=== PATIENT | male | born 1990 | race Two or more races ===

== ENCOUNTER 2025-04-10 11:35 | Inpatient (IN) | payer BC, SELFPAY ==
[2025-04-10] VITALS (10 sets, daily range): BP systolic 106–151; BP diastolic 70–88; PULSE 84–110; RESP 13–19; TEMP 36.2–36.9; O2SAT 94–100; BMI 38.5; BMI 38.4
--- NOTE | 2025-04-10 11:48 | XR_ITS ---
Examination: CT abdomen with intravenous contrast CT pelvis with intravenous contrast 2-D coronal reconstructions 2-D sagittal reconstructions Date and time of exam:April 10, 2025 1325 hours, comparison 05/05/2021 INDICATIONS: Right buttock groin area pain onset today, clinical diagnosis perianal abscess. CTDI: vol (mGy) 13.5 DLP: (mGycm) 974 Technique: Multiple axial sections of the abdomen and pelvis have been obtained. 64 slice high-resolution scanner used. 3 mm axial sections have been obtained, post intravenous injection 60 cc [id number] 2-D sagittal, coronal reconstructions obtained. Low dose protocols were performed. One or more of the following dose reduction techniques were used; automated exposure control, adjustment of the mA and/or KV according to patient size, use of iterative reconstruction technique. Findings: No focal liver or splenic lesions No gallstones No pancreatic or adrenal mass No renal or ureteral calculi, no hydronephrosis Aorta normal size Absent appendix No bowel obstruction Normal seminal vesicles No prostatomegaly Contracted urinary bladder Cellulitis pattern in the right buttock anterolisthesis extent left buttock but no soft tissue abscess Perianal abscess, 8 x 2.5 x 6.7 cm, inflammation extending to the perineum and base of the scrotal sac IMPRESSION: Large perianal abscess, recommend surgical consultation
--- NOTE | 2025-04-10 11:48 | PD.EDRME ---
Rapid Medical Screening Exam RME Arrival date/time: 04/10/25 11:35 34-year-old male presents to the emergency department today for complaints of right buttock pain perirectal pain Chief Complaint: Skin/Abscess/Foreign Body Vital signs: Vital Signs Temperature 98.4 F 04/10/25 11:42 Pulse Rate 110 H 04/10/25 11:42 Respiratory Rate 19 04/10/25 11:42 Blood Pressure 151/88 H 04/10/25 11:42 Pulse Oximetry (%) 97 04/10/25 11:42 Oxygen Delivery Method Room Air 04/10/25 11:42
[2025-04-10] MEDS: HYDROcodone/APAP 5/325 TABLET 1 TAB PO (11:55)
[2025-04-10 12:14] LABS: Lactate (Lactic Acid) 1.4 mMol/L (0.4-2.0)
[2025-04-10 12:18] LABS: Basophils # (Auto) 0.1 Thou/mm3 (0.0-0.2); Basophils % (Auto) 1 % (0-2.5); Eosinophils # (Auto) 0.5 Thou/mm3 (0.0-0.5); Eosinophils % (Auto) 4 % (0-10); Hematocrit 40.9 % (41.0-53.0); Hemoglobin 13.7 g/dL (13.5-16.0); Immature Granulocytes Auto 0.03 Thou/mm3 (0.00-0.00); Lymphocytes # (Auto) 1.2 Thou/mm3 (1.0-4.8); Lymphocytes % (Auto) 9 % (10-50); Mean Corpuscular HGB Conc 33.5 g/dl (31.0-37.0); Mean Corpuscular Hemoglobin 29.6 pg (25.0-35.0); Mean Corpuscular Volume 88 fL (80-100); Monocytes # (Auto) 0.9 Thou/mm3 (0.0-0.8); Monocytes % (Auto) 7 % (0-12); Neutrophils # (Auto) 10.3 Thou/mm3 (1.8-7.7); Neutrophils % (Auto) 80 % (37-80); Nucleated Red Blood Cell # 0.00 Thou/mm3 (0.00-0.00); Nucleated Red Blood Cell % 0 /100 WBC (0); Platelet Count 291 Thou/mm3 (140-440); RDW Standard Deviation 40.7 fL (35.1-43.9); Red Blood Count 4.63 Miln/mm3 (4.50-5.90); White Blood Count 13.0 Thou/mm3 (3.8-10.6)
[2025-04-10 12:46] LABS: Alanine Aminotransferase 26 U/L (10-49); Albumin, Serum 4.5 gm/dL (3.5-5.0); Albumin/Globulin Ratio 1.7 (1.2-2.2); Alkaline Phosphatase 79 U/L (46-116); Anion Gap 10 (7-16); Aspartate Amino Transferase 15 U/L (0-34); BUN/Creatinine Ratio 9 Ratio (12-20); Bilirubin,Total 0.9 mg/dL (0.3-1.2); Blood Urea Nitrogen 9 mg/dL (9-23); Calcium 10.4 mg/dL (8.3-10.6); Calcium (Corrected) 10.4 mg/dL (8.5-10.1); Carbon Dioxide 24.7 mMol/L (20.0-31.0); Chloride 107 mMol/L (98-107); Creatinine (Component) 1.0 mg/dL (0.6-1.3); Estimated Creatinine Clearance 140.2 mL/min (>60); Globulin 2.7 gm/dL (2.3-3.5); Glucose 139 mg/dL (74-106); Lipase 31 U/L (12-53); Osmolality,Calculated 283 (275-295); Potassium 4.2 mMol/L (3.4-5.1); Procalcitonin 0.14 ng/ml (0.0-0.49); Sodium 142 mMol/L (136-145); Total Protein 7.2 gm/dL (5.7-8.2); eGFR > 60 See Note
--- NOTE | 2025-04-10 14:02 | PD.EDSKIN ---
ED Skin Abcess FB-RME/HPI General Chief complaint: Skin/Abscess/Foreign Body Stated complaint: SWELLING TO BUTTOCK/GROIN AREA x 1 WEEK Time Seen by Provider: 04/10/25 14:02 Arrival date/time: 04/10/25 11:35 34-year-old male presents to the emergency department today for complaints of right buttock pain perirectal pain ongoing x 1 week patient reports no acute medical problems reports surgical history significant for appendicitis Limitations: no limitations RME / HPI RME / HPI narrative: 04/10/25 11:35 34-year-old male presents to the emergency department today for complaints of right buttock pain perirectal pain Related Data Home Medications ?Medication ?Instructions ?Recorded ?Confirmed omeprazole magnesium 20 mg 20 mg PO QDAY PRN heartburn 04/26/21 04/10/25 tablet,delayed release (Prilosec OTC) Allergies Allergy/AdvReac Type Severity Reaction Status Date / Time No Known Allergies Allergy Verified 04/10/25 16:21 Review of Systems Review of Systems Systems Reviewed: All systems reviewed, normal except as documented Constitutional Constitutional: Reports system reviewed and no additional complaints, except as documented, Denies fever(s) and Denies headache(s) Eyes Eyes: Reports system reviewed and no additional complaints, except as documented and Denies blurry vision ENT Ears, Nose, Mouth, and Throat: Reports system reviewed and no additional complaints, except as documented, Denies headache(s), Denies nasal congestion and Denies nasal discharge Cardiovascular Cardiovascular: Reports system reviewed and no additional complaints, except as documented, Denies chest pain and Denies dyspnea Respiratory Respiratory: Reports system reviewed and no additional complaints, except as documented, Denies chest congestion, Denies cough and Denies dyspnea Gastrointestinal Gastrointestinal: Reports system reviewed and no additional complaints, except as documented and Denies abdominal pain Integumentary/Breasts Skin/Breast: Reports system reviewed and no additional complaints, except as documented, Denies rash and Reports other (Rectal abscess) Neurologic Neurologic: Reports system reviewed and no additional complaints, except as documented, Reports as per HPI and Denies headache(s) Past Medical History Past Medical History NEUROLOGIC: Negative Neurological Disorders or Seizures CARDIAC: Negative Cardiac Disorders or Congestive Heart Failure RESPIRATORY: Negative Respiratory Disorders, Chronic Obstructive Pulmonary Disease (COPD) or Asthma GASTROINTESTINAL: Positive Gastrointestinal Disorders, Hemorrhoids, Gastroesophageal Reflux Disease and Obesity; Negative Hepatitis GENITOURINARY: Negative Genitourinary Disorders or Renal Disease MUSCULOSKELETAL: Negative Musculoskeletal Disorders ENDOCRINE: Negative Endocrine Disorders, Diabetes Mellitus Type 1 or Diabetes Mellitus Type 2 HEMATOLOGIC: Negative Blood Disorders or Sickle Cell Disease OTHER HISTORY: Positive Hospitalization and Chicken Pox; Negative Shingles, Falls, Blood Transfusions, Blood Transfusion Reaction, Anesthesia Reactions, Chemotherapy, Radiation Therapy, MRSA, Measles, Mumps or Cancer Family History FAMILY HISTORY: Negative Family Cancer Surgical History SURGICAL: Positive Abdominal Surgery and Knee Sx (I&D knee staph infection); Negative Cardiac Surgery or Endocrine Surgery OTHER SURGICAL HX: Appendectomy Social History SMOKING STATUS: Current some day smoker SUBSTANCE USE: does not use ED Exam General Limitations: Present no limitations General appearance: Present alert and in no apparent distress Head Head exam: Present atraumatic Eye Eye exam: Present normal appearance, PERRL and EOMI ENT ENT exam: Present normal exam, normal oropharynx and mucous membranes moist Neck Neck exam: Present normal inspection, full ROM and trachea midline Chest Chest inspection: Present normal inspection and symmetric chest wall rise Respiratory Respiratory exam: Present normal lung sounds bilaterally Cardiovascular Cardiovascular exam: Present regular rate, normal rhythm and normal heart sounds Abdominal Exam Abdominal exam: Present soft and normal bowel sounds Extremities Exam Extremities exam: Present normal inspection and full ROM Back Exam Back exam: Present normal inspection and full ROM Neurological Exam Neurological exam: Present alert, oriented X3, CN II-XII intact, normal gait and reflexes normal; Absent motor sensory deficit Psychiatric Psychiatric exam: Present normal affect and normal mood Skin Skin exam: Present warm, dry and other (Pararectal abscess) Course Quality Measures none Orders Category Date Time Status COVID-19 Screening Questionnaire NOW Care 04/10/25 14:[address] Screening NOW Care 04/10/25 11:48 Completed Decision to Admit X1 Care 04/10/25 14:00 Completed Insert IV NOW Care 04/10/25 11:48 Completed NPO NOW Care 04/10/25 14:08 Completed NPO NOW Care 04/10/25 14:52 Completed Notify provider NEEDED Care 04/10/25 14:12 Active Vital Signs, Non-Routine Q6H Care 04/10/25 14:15 Ordered Vital Signs, Non-Routine Q6H Care 04/10/25 20:15 Ordered Consult to General Surgery Stat Cons 04/10/25 14:03 Ordered Diet NPO (NOW) Diet 04/10/25 14:[address] abdomen pelvis w con Stat Exams 04/10/25 11:48 Completed Blood Culture (Lab) Stat Lab 04/10/25 12:05 Received CBC AM DRAW Lab 04/11/25 05:00 Ordered CBC AM DRAW Lab 04/12/25 05:00 Ordered CBC AM DRAW Lab 04/13/25 05:00 Ordered CBC AM DRAW Lab 04/14/25 05:00 Ordered CBC AM DRAW Lab 04/15/25 05:00 Ordered CBC AM DRAW Lab 04/16/25 05:00 Ordered CBC Stat Lab 04/10/25 12:00 Completed CMP [Comprehensive Metabolic Panel] AM DRAW Lab 04/11/25 05:00 Ordered CMP [Comprehensive Metabolic Panel] AM DRAW Lab 04/12/25 05:00 Ordered CMP [Comprehensive Metabolic Panel] AM DRAW Lab 04/13/25 05:00 Ordered CMP [Comprehensive Metabolic Panel] AM DRAW Lab 04/14/25 05:00 Ordered CMP [Comprehensive Metabolic Panel] AM DRAW Lab 04/15/25 05:00 Ordered CMP [Comprehensive Metabolic Panel] AM DRAW Lab 04/16/25 05:00 Ordered Comprehensive Metabolic Panel Stat Lab 04/10/25 12:00 Completed Lactate (Lactic Acid) Stat Lab 04/10/25 12:00 Completed Lipase Stat Lab 04/10/25 12:00 Completed Magnesium AM DRAW Lab 04/11/25 05:00 Ordered Magnesium AM DRAW Lab 04/12/25 05:00 Ordered Magnesium AM DRAW Lab 04/13/25 05:00 Ordered Magnesium AM DRAW Lab 04/14/25 05:00 Ordered Magnesium AM DRAW Lab 04/15/25 05:00 Ordered Magnesium AM DRAW Lab 04/16/25 05:00 Ordered Phosphorous AM DRAW Lab 04/11/25 05:00 Ordered Phosphorous AM DRAW Lab 04/12/25 05:00 Ordered Phosphorous AM DRAW Lab 04/13/25 05:00 Ordered Phosphorous AM DRAW Lab 04/14/25 05:00 Ordered Phosphorous AM DRAW Lab 04/15/25 05:00 Ordered Phosphorous AM DRAW Lab 04/16/25 05:00 Ordered Procalcitonin Stat Lab 04/10/25 12:00 Completed Urinalysis Stat Lab 04/10/25 14:12 Completed Urine Culture Stat Lab 04/10/25 14:12 Received Acetaminophen Ivpb [Ofirmev Inj] 100 ml Med 04/10/25 15:34 Discontinued IV .STK-MED Bupivacaine Mpf/Epi 0.5% [Sensorcaine-Mpf Inj 0.5% w/ Med 04/10/25 15:34 Discontinued Epi] 30 ml .ROUTE .STK-MED ONE Dexamethasone Inj [Decadron Inj] Med 04/10/25 15:20 Discontinued 10 mg .ROUTE .STK-MED ONE HYDROcodone*/APAP 5/325 [Sherman 5/325] Med 04/10/25 11:48 Discontinued 1 tab PO X1 ONE Ketorolac Inj [Toradol Inj] Med 04/10/25 15:46 Discontinued 30 mg .ROUTE .STK-MED ONE Lidocaine 1% Pf 2 ml [Xylocaine Pf 1% 2 ml] Med 04/10/25 15:20 Discontinued 2 ml .ROUTE .STK-MED ONE Midazolam Inj [Versed Inj] Med 04/10/25 15:21 Discontinued 2 mg .ROUTE .STK-MED ONE Morphine* Inj Med 04/10/25 14:52 Active 1 mg IVP Q3HR PRN Morphine* Inj Med 04/10/25 14:52 Discontinued 2 mg IVP X1 ONE Ondansetron Inj [Zofran Inj] Med 04/10/25 15:20 Discontinued 4 mg .ROUTE .STK-MED ONE Propofol Inj [Diprivan Inj] Med 04/10/25 15:20 Discontinued 400 mg IV .STK-MED ONE Ringers Lactated 1000 ml [Lactated Ringers] 1,000 ml Med 04/10/25 14:15 Discontinued IV 75 mls/hr cefTRIAXone [Rocephin] 2 gm Med 04/10/25 14:14 Discontinued SODIUM CHLORIDE 0.9% (Popper) [Ns 0.9% (P)] 50 ml IV X1 fentaNYL INJ [Sublimaze Inj] Med 04/10/25 15:20 Discontinued 100 mcg .ROUTE .STK-MED ONE metroNIDAZOLE/NS 500 MG IVPB [Flagyl 500 mg IV] Med 04/10/25 14:15 Discontinued 500 mg in 100 ml IV Q8HR Code Status Routine Oth 04/10/25 14:12 Ordered Vital Signs Vital signs: Vital Signs Temperature 98.4 F 04/10/25 11:42 Pulse Rate 110 H 04/10/25 11:42 Respiratory Rate 19 04/10/25 11:42 Blood Pressure 151/88 H 04/10/25 11:42 Pulse Oximetry (%) 97 04/10/25 11:42 Oxygen Delivery Method Room Air 04/10/25 11:42 O2 saturation 97% room air within normal limits Skin / Abscess / Foreign Body MDM Narrative MDM Narrative:: 34-year-old male presents to the emergency department today for complaints of right buttock pain perirectal pain ongoing x 1 week patient reports no acute medical problems reports surgical history significant for appendicitis On exam clinically patient has a pararectal abscess On exam patient is well-appearing patient's not appear toxic Lab work and imaging obtained consistent with large pararectal abscess Consultation: Spoke with Dr. whitehead states to take the patient to surgery Spoke with hospitalist team sacral admit Patient data External records reviewed:: [facility] previous records Clinical information provided by:: patient Social determinants that could affect healthcare access:: none Patient has the following chronic illnesses:: See history How is presenting disease/condition affected by chronic disease/condition?: uneffected by Evaluation data The following diagnostics were reviewed and interpreted by me:: lab results and radiology exam(s) Lab and/or radiology exams considered but not ordered:: Labs radiology obtained Interpretation Summary: Reviewed by me Medications / Prescriptions Medications or Prescriptions considered but not ordered:: Given Medication administrations:: Medication Administration History Acetaminophen (Acetaminophen 325 Mg Tablet) 650 mg PO Q6HR PRN PRN Reason: FEVER >101 Stop: 05/10/25 16:57 Hydrocodone Bitart/Acetaminophen (Hydrocodone/Apap 5/325 Tablet) 1 tab PO Q6HR PRN PRN Reason: PAIN 4-6 Stop: 04/15/25 16:57 Ascorbic Acid (Ascorbic Acid 250 Mg Tablet) 500 mg PO BID [facility] Stop: 05/10/25 20:59 Docusate Sodium (Docusate Sod 100 Mg Capsule) 100 mg PO BID [facility]; Protocol Stop: 05/10/25 20:59 Clindamycin Phosphate 900 mg/ (IV Miscellaneous Supplies) 50 mls @ 50 mls/hr IV Q8HR [facility] Stop: 04/17/25 21:59 Morphine Sulfate (Morphine Sulf Inj 4 Mg/Ml Vial) 1 mg IVP Q3HR PRN PRN Reason: PAIN SCALE 7-10 (Severe Stop: 04/15/25 14:51 Ondansetron HCl (Ondansetron Inj 2 Mg/Ml Inj 2 Ml) 4 mg IVP Q6HR PRN; Protocol PRN Reason: NAUSEA OR VOMITING Stop: 05/10/25 16:57 Pantoprazole Sodium (Pantoprazole 40 Mg Tablet) 40 mg PO QDAY [facility] Stop: 05/10/25 16:57 Last Admin: 04/10/25 17:21 Dose: 40 mg Documented By: JONY Zinc Sulfate (Zinc Sulfate 220 Mg Capsule) 220 mg PO QDAY [facility] Stop: 05/11/25 08:59 Discontinued Medications Hydrocodone Bitart/Acetaminophen (Hydrocodone/Apap 5/325 Tablet) 1 tab PO X1 ONE Stop: 04/10/25 11:49 Last Admin: 04/10/25 11:55 Dose: 1 tab Documented By: JERRY Bupivacaine HCl/Epinephrine Bitart (Bupivacaine Mpf/Epi 0.5% 30 Ml Vial 1:200,000) Confirm Administered Dose 30 ml .ROUTE .STK-MED ONE Stop: 04/10/25 15:35 Dexamethasone Sodium Phosphate (Dexamethasone Sod Phos Inj 10 Mg/Ml Vial) Confirm Administered Dose 10 mg .ROUTE .STK-MED ONE Stop: 04/10/25 15:21 Fentanyl Citrate (Fentanyl Cit Inj 50 Mcg/Ml Amp 2ml) Confirm Administered Dose 100 mcg .ROUTE .STK-MED ONE Stop: 04/10/25 15:21 Lactated Ringer's (Lactated Ringers) 1,000 mls @ 75 mls/hr IV .[id number] [facility] Stop: 05/10/25 14:14 Last Admin: 04/10/25 15:14 Dose: 75 mls/hr Documented By: XOCHITL Ceftriaxone Sodium 2 gm/ (Sodium Chloride) 50 mls @ 100 mls/hr IV X1 ONE Stop: 04/10/25 14:43 Last Infusion: 04/10/25 15:11 Dose: Infused Documented By: Admin: 04/10/25 14:41 Dose: 100 mls/hr Documented By: XOCHITL Metronidazole (Flagyl 500 Mg Iv) 500 mg in 100 mls @ 200 mls/hr IV Q8HR [facility] Stop: 04/17/25 14:14 Last Admin: 04/10/25 14:52 Dose: 200 mls/hr Documented By: XOCHITL Acetaminophen (Ofirmev Inj) Confirm Administered Dose 100 mls @ ud IV .STK-MED ONE Stop: 04/10/25 15:35 Ketorolac Tromethamine (Ketorolac Inj 30 Mg/Ml Vial) Confirm Administered Dose 30 mg .ROUTE .STK-MED ONE Stop: 04/10/25 15:47 Lidocaine HCl (Lidocaine Inj Pf 1% 2 Ml Vial) Confirm Administered Dose 2 ml .ROUTE .STK-MED ONE Stop: 04/10/25 15:21 Midazolam HCl (Midazolam Inj 1 Mg/Ml Vial 2 Ml) Confirm Administered Dose 2 mg .ROUTE .STK-MED ONE Stop: 04/10/25 15:22 Morphine Sulfate (Morphine Sulf Inj 4 Mg/Ml Vial) 2 mg IVP X1 ONE Stop: 04/10/25 14:53 Last Admin: 04/10/25 15:07 Dose: 2 mg Documented By: LP Ondansetron HCl (Ondansetron Inj 2 Mg/Ml Inj 2 Ml) Confirm Administered Dose 4 mg .ROUTE .STK-MED ONE Stop: 04/10/25 15:21 Propofol (Propofol Inj 10 Mg/Ml Vial 20 Ml) Confirm Administered Dose 400 mg IV .STK-MED ONE Stop: 04/10/25 15:21 Given Consultations Consultation(s) initiated? (list below): Yes Consultation #1 (Physician, Specialty, Details): Dr Whitehead Diagnosis Skin/Abscess Differential Diagnosis: abscess of skin or subcutaneous tissue and cellulitis Most likely diagnosis given after review of the tests above:: Pararectal abscess Admission Indicated Admission indicated?: indicated Admission Request Was there a request for admission?: Yes Admission Attestation Admission request attestation: Discussed case with Dr. Whitehead surgeon as well as hospitalist team Disposition Plan Disposition Plan: Admit Discharge Plan Plan Patient Disposition: Admit Acute Care w/in Hospital Discharge Disposition comment: Stable Problem List Clinical Impression: Abscess, perirectal PA/[employer] Supervising Physician PA/[employer] Supervising Physician: Dr. felton
--- NOTE | 2025-04-10 14:16 | ESHP_ITS ---
<Statement entered by Kanchan Stallworth MD - 04/11/25 07:28> Patient is a 34-year-old male without no significant past medical history was admitted to [facility] for further management for his perianal abscess. Patient states that he usually had abscesses in his gluteal cleft's but usually self resolve however this time it has not, as a result came to the ER for further pain management. General surgery was consulted and will take patient to the OR today. Patient will be on antibiotics, and pending further recommendations from general surgery. Anticipate discharge within 48-72 hours. I discussed with and supervised the university internship physician who took care of this patient. I personally saw and examined the patient and discussed the assessment and plan with the entire medicine team, including my attending Dr. Grider, I agree with most of the assessment and plan as documented below Kanchan Stallworth M.D. PGY-3 Disclaimer: Despite multiple revisions, due to the dictation software being used, the document bellow may not be free of grammatical errors including phonetic/typographic errors. However, this does not deter from our commitment to providing health care in the patient's best interest in mind. <Statement entered by Shahrzad Bradshaw MD - 04/10/25 17:43> Note reviewed, I agree with most of its contents and agree with the patient's care as documented by Dr. Figueroa. Yosef Alonzo is 34 yr male with no significant PMH presenting to ED due to buttox pain for past week. Started as back pain that progressed. He endorses pain 7/10, subjective fevers, and night sweats, using ibuprofen/Tylenol at home. He denies any blood in the stool or diarrhea. Colonoscopy from 2020 showed hemorrhoids. Banding was to be completed later on at follow-up. Patient said he was lost to follow-up with GI team. In ED WBCs 13, vitals were stable. Surgery Dr. Whitehead was consulted. Patient admitted for I&D of perianal abscess. Continue clindamycin and norco as needed for pain. The patient's management plan was discussed with my attending physician Dr. Grider. Shahrzad Bradshaw, PGY-2 Documentation for date of: 04/10/25 HPI History of Present Illness Chief complaint: perianal abscess History of present illness: Mr. Alonzo is a 34-year-old gentleman who is otherwise healthy with no significant past medical history. 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 He presents to the ED with perianal pain mild leukocytosis of 13. Pt reports social smoking and social drinking with no recreational drugs Pt reports hx of prior colonoscopy performed due to c/f lower gi bleed, that found hemorrhoids ROS positive for rectal pain 03/16 negative for fevers, chills, abdominal pain, nausea, vomiting No known drug allergies ED course Patient presented with perianal pain, Dr Whitehead was consulted. Vital signs notable for tachycardia of 101 plan to take patient to surgery urgently. Dx CTAP with Large perianal abscess, recommend surgical consultation Tx Ceftriaxone 1 gm metronidozole 500 LR maintence fluids 75 cc/hr Morphine 2mg IV x1 Taken to surgery for i and d of perianal abscess Review of Systems Review of Systems Narrative Review of Systems: as per hpi Exam Vital Signs Temp Pulse Resp BP Pulse Ox O2 Del Method 98.4 F 110 H 19 151/88 H 97 Room Air 04/10/25 11:42 04/10/25 11:42 04/10/25 11:42 04/10/25 11:42 04/10/25 11:42 04/10/25 11:42 Narrative Exam GENERAL: no acute distress, appears to be in moderate pain AAO x3, laying in bed on his left side HEENT: Head AT/ NC. Mucous membranes moist. PERRL. tearful NECK: Supple, no lymphadenopathy, no carotid bruits. CARDIOVASCULAR: sinus tachycardia. Normal S1/S2, No m/r/g. No pitting edema of bilateral LEs. RESPIRATORY: CTAB. No wheezing, rhonchi, crackles. GASTROINTESTINAL: Abdomen soft, non tender no palpable masses. Bowel sounds present : exam of perianal abscess was deferred, per pt request MUSCULOSKELETAL:? No cyanosis or edema, no visible joint swelling. NEUROLOGICAL: CN II-XII grossly intact. No focal deficits. Sensation intact, symmetric. PSYCHIATRIC: Awake and alert, not agitated, normal mood and affect. SKIN: No obvious rashes, no jaundice, normal turgor. Results: Labs 04/11/25 05:42 04/11/25 05:42 Labs: Short CBC 04/10/25 Range/Units 12:00 WBC 13.0 H (3.8-10.6) Thou/mm3 Hgb 13.7 (13.5-16.0) g/dL Hct 40.9 L (41.0-53.0) % Plt Count 291 (140-440) Thou/mm3 BMP 04/10/25 12:00 Sodium 142 Potassium 4.2 Chloride 107 Carbon Dioxide 24.7 BUN 9 Creatinine 1.0 Glucose 139 H Calcium 10.4 Liver Function 04/10/25 Range/Units 12:00 Total Bilirubin 0.9 (0.3-1.2) mg/dL AST 15 (0-34) U/L ALT 26 (10-49) U/L Alkaline Phosphatase 79 (46-116) U/L Albumin 4.5 (3.5-5.0) gm/dL Quality Measures Quality Measures VTE prophylaxis Medications Home Medications and Allergies Home Medications ?Medication ?Instructions ?Recorded ?Confirmed ?Type omeprazole magnesium 20 mg 20 mg PO QDAY PRN heartburn 04/26/21 04/10/25 History tablet,delayed release (Prilosec OTC) Allergies Allergy/AdvReac Type Severity Reaction Status Date / Time No Known Allergies Allergy Verified 04/10/25 16:21 Visit Medications Lactated Ringer's (Lactated Ringers) 1,000 mls @ 75 mls/hr IV .[id number] LOYDA Stop: 05/10/25 14:14 Ceftriaxone Sodium 2 gm/ (Sodium Chloride) 50 mls @ 100 mls/hr IV X1 ONE Stop: 04/10/25 14:43 Metronidazole (Flagyl 500 Mg Iv) 500 mg in 100 mls @ 200 mls/hr IV Q8HR LOYDA Stop: 04/17/25 14:14 Discontinued Medications Hydrocodone Bitart/Acetaminophen (Hydrocodone/Apap 5/325 Tablet) 1 tab PO X1 ONE Stop: 04/10/25 11:49 Last Admin: 04/10/25 11:55 Dose: 1 tab Assessment & Plan Plan Mr. Alonzo is a 34-year-old gentleman who is otherwise healthy with no significant past medical history. 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 He presents to the ED with perianal pain mild leukocytosis of 13. Found to have large perianal abscess on CTAP, admitted for surgical i and d with Dr. 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 Whitehead given Ceftriaxone, metronidozole, and Cefepime prior to surgery - CTM CBC - abscess culture pending - blood cx pending - IV maintenance fluids - NPO, advance diet per Dr. Whitehead recommendations - Pain regimen post op per Dr. Whitehead reccarmel Mild Hypercalcemia - IV fluids Dispo: i and d today, pending Diet: NPO pending surgery Bowel Reg: per best lackey VTE ppx: SCD GI ppx: not indicated. Code status: FULL Plan discussed with Dr. Bradshaw, Dr Stallworth, and Dr. Marni Figueroa MD PGY1 Attending Provider Attestation/Addendum I have examined the patient, reviewed labs and imaging findings, discussed the case with the resident(s), and reviewed entered orders. I agree with the plan of care as outlined in this note, with these additional summaries/recommendations: After examination of the patient and review of the clinical data, I feel that this patient needs admission to the hospital for further treatment and evaluation. Patient is a 34-year-old male with a medical history of GERD and hemorrhoids who presents to [facility] emergency department on 04/10/2025 for buttock and perirectal pain. Patient seen at bedside. He reports symptoms started approximately 1 week ago and have progressively worsened. He endorses redness and pain. He does not remember any inciting event. Significant leukocytosis present 13,000. Patient underwent CT of abdomen and pelvis which revealed large perianal abscess 8X2.5X 6.7 cm with inflammation extending to the perineum and base of the scrotal sac. General surgery was consulted and patient will go for surgical intervention today. Start broad-spectrum antibiotics. Order blood cultures and obtain intraoperative culture. Pain management as needed. Patient noted to be hypertensive although likely secondary to pain. He denies a previous history of hypertension and does not take antihypertensives at home. Patient updated on the plan and in agreement. All questions answered to satisfaction. Please see resident's note for additional details and management. Dr. Marni MD
[2025-04-10 14:28] LABS: Collection Type, Urine Clean Catch
[2025-04-10] MEDS: cefTRIAXone 2 GM in SODIUM CHLORIDE 0.9% (Popper) 50 ML IV (14:41)
[2025-04-10 14:43] LABS: Bilirubin,Urine Negative (Negative); Blood,Urine Negative (Negative); Clarity,Urine Clear (Clear/Hazy); Color,Urine Yellow (Lt Yel-Yel); Glucose, Urine Negative (Negative); Ketones,Urine Negative (Negative); Leukocyte Esterase,Urine Negative (Negative); Nitrite,Urine Negative (Negative); PH,Urine 6.0 (5.0-7.0); Protein,Urine 1+ (Neg - Trace); RBC,Urine 7 /hpf (0-3); Squamous Epithelial Cell,Urine < 1 /hpf (0-5); Urobilinogen,Urine 2.0 mg/dL (0.0-1.0); WBC,Urine 3 /hpf (0-5)
--- NOTE | 2025-04-10 14:43 | PD.SURCONS ---
HPI Consult details Consult date: 04/10/25 Reason for consultation narrative: Perianal abscess History of present illness: 34 yo obese male presented to ED with acute onset perianal pain. His symptoms started about a week ago with some pain and perianal swelling. Over the past 2 days his symptoms have been getting progressively worse with increased pain and swelling. He denies drainage or bleeding. He denies history of trauma or insect bites. He has had colonoscopy in 04/2021 that revealed hemorrhoids. He underwent CT scan that revealed large perianal abscess. Review of Systems Constitutional Constitutional: Denies chills and Denies fever(s) Cardiovascular Cardiovascular: Denies chest pain Respiratory Respiratory: Denies cough Gastrointestinal Gastrointestinal: Denies abdominal pain, Denies nausea and Denies vomiting Genitourinary Genitourinary: Denies difficulty urinating Hematologic/Lymphatic Hematologic/Lymphatic: Denies easy bleeding and Denies easy bruising Past Medical History Surgical History OTHER SURGICAL HX: Appendectomy Social History SMOKING STATUS: Current some day smoker SUBSTANCE USE: does not use ALCOHOL: Current Meds Home Medications and Allergies Home Medications ?Medication ?Instructions ?Recorded ?Confirmed ?Type omeprazole magnesium 20 mg 20 mg PO QDAY 04/26/21 04/26/21 History tablet,delayed release (Prilosec OTC) Allergies Allergy/AdvReac Type Severity Reaction Status Date / Time No Known Allergies Allergy Verified 04/10/25 11:37 Exam Vital Signs Temp Pulse Resp BP Pulse Ox O2 Del Method 98.4 F 110 H 19 151/88 H 97 Room Air 04/10/25 11:42 04/10/25 11:42 04/10/25 11:42 04/10/25 11:42 04/10/25 11:42 04/10/25 11:42 Constitutional Constitutional: no acute distress Routine Abdominal Exam Abdominal: Present soft and normoactive bowel sounds; Absent tenderness or distended Routine Rectal Exam Comments: Cellulitis with edema and right perineal fluctuance with central area of skin necrosis Results Results: Laboratory Laboratory results: results reviewed Results: Imaging CT scan - abdomen: report reviewed and image reviewed CT scan - pelvis: report reviewed and image reviewed Assessment & Plan Problem List (1) Perianal abscess: Status: Acute Plan Will take pt to operating room for incision and drainage of his perianal abscess. Risks include but not limited to infection, bleeding, chronic nonhealing wound, possibility of developing fistula in the future, pneumonia and blood clot discussed with the patient. Benefits and alternatives explained to him, all his questions answered, he agreed and consented to proceed with the operation.
[2025-04-10 14:49] LABS: Specific Gravity,Urine 1.020 (1.001-1.035)
[2025-04-10] MEDS: metroNIDAZOLE/NS 500 MG IVPB 500 MG/100 ML BAG 200 MG IV (14:52)
[2025-04-10] MEDS: MORPHINE SULF INJ 4 MG/ML VIAL 2 MG IVP (15:07)
[2025-04-10] MEDS: RINGERS LACTATED 1000 ML 1,000 ML 75 ML IV (15:14)
--- NOTE | 2025-04-10 15:16 | PC.NURSE ---
PT TAKEN TO OR VIA [facility] ACCOMPANIED BY ADITYA MARCANO AND GLORIA CHIUIZADOLE FINISHING AND LR SCANNED.
--- NOTE | 2025-04-10 15:28 | ESOP_ITS ---
Date of Procedure 04/10/25 Pre Op Diagnosis Perianal abscess Post Op Diagnosis Perianal abscess Procedure Incision and drainage of perianal abscess Findings Large right perianal abscess with central area of skin necrosis Procedure Description Patient brought into the operating room in supine position. After administration of general endotracheal anesthesia, patient was placed in high lithotomy position. He was noted to have significant cellulitis and large right perianal abscess with approximately 1 cm area of skin necrosis. After ad ministration of local anesthesia the necrotic skin was excised and dissection was deepened into soft tissue, copious amount of foul-smelling purulent drainage encountered, cultures were obtained. The abscess cavity was evacuated. The cavity was copiously and thoroughly washed and irrigated with Betadine mixed with peroxide and saline and further washed with warm saline. Hemostasis achieved using electrocautery. The cavity was packed with wet-to-dry dressings. Patient tolerated the procedure well. He was placed in supine position and extubated. He was breathing spontaneously and without difficulty and was transferred to postanesthesia care in stable condition. Instruments, needles and sponge counts were reported to be correct x 2. Anesthesia GETA and local Pathology / specimen Other (Cultures from the abscess cavity) Estimated Blood Loss 10 Condition Stable Disposition PACU Surgeon Jackelyn Whitehead MD Surgical Staff Operation Date: 04/10/25 15:00 <No data on this case meets the specified criteria>
--- NOTE | 2025-04-10 16:16 | SUR.PHASEI ---
Pt. arrived to recovery via gurney, eyes closed, responds to verbal commands, VSS, no c/o pain or nausea at this time, lung sounds clear, equal expansion young., pt. receiving 8 liters 02 via oxymask, dressing to right lower medial buttock, no active bleeding or redness noted. Report received from Dr. Anguiano and Alexa MARCANO.
--- NOTE | 2025-04-10 16:50 | SUR.PHASEI ---
Pt. transferred to room 379 via gurney with all of belongings, VSS, dressing to right buttock CDI, no c/o pain or nausea at this time, IV flushed and saline locked, Amberly MARCANO assumed care of pt.
[2025-04-10] MEDS: PANTOPRAZOLE 40 MG TABLET PO (17:21)
[2025-04-10] MEDS: ASCORBIC ACID 250 MG TABLET 500 MG PO (21:03)
[2025-04-10] MEDS: DOCUSATE SOD 100 MG CAPSULE PO (21:03)
[2025-04-10] MEDS: CLINDAMYCIN 900MG IVPB 900 MG in PRE-MIXED 1 BAG 50 MG IV (21:03)
[2025-04-10] MEDS: MORPHINE SULF INJ 4 MG/ML VIAL 1 MG IVP (21:15)
[2025-04-11] VITALS: BP 130/94; PULSE 91; RESP 18; TEMP 36.2; O2SAT 99
[2025-04-11 04:00] VITALS: BP 135/97; PULSE 97; RESP 18; TEMP 36.2; O2SAT 97
[2025-04-11] MEDS: CLINDAMYCIN 900MG IVPB 900 MG in PRE-MIXED 1 BAG 50 MG IV ×3 (05:06→21:25)
[2025-04-11] MEDS: MORPHINE SULF INJ 4 MG/ML VIAL 1 MG IVP ×3 (05:14→21:20)
[2025-04-11 06:34] LABS: Basophils # (Auto) 0.0 Thou/mm3 (0.0-0.2); Basophils % (Auto) 0 % (0-2.5); Eosinophils # (Auto) 0.0 Thou/mm3 (0.0-0.5); Eosinophils % (Auto) 0 % (0-10); Hematocrit 40.8 % (41.0-53.0); Hemoglobin 13.3 g/dL (13.5-16.0); Immature Granulocytes Auto 0.07 Thou/mm3 (0.00-0.00); Lymphocytes # (Auto) 0.7 Thou/mm3 (1.0-4.8); Lymphocytes % (Auto) 5 % (10-50); Mean Corpuscular HGB Conc 32.6 g/dl (31.0-37.0); Mean Corpuscular Hemoglobin 29.2 pg (25.0-35.0); Mean Corpuscular Volume 90 fL (80-100); Monocytes # (Auto) 0.9 Thou/mm3 (0.0-0.8); Monocytes % (Auto) 6 % (0-12); Neutrophils # (Auto) 13.1 Thou/mm3 (1.8-7.7); Neutrophils % (Auto) 89 % (37-80); Nucleated Red Blood Cell # 0.00 Thou/mm3 (0.00-0.00); Nucleated Red Blood Cell % 0 /100 WBC (0); Platelet Count 350 Thou/mm3 (140-440); RDW Standard Deviation 41.7 fL (35.1-43.9); Red Blood Count 4.55 Miln/mm3 (4.50-5.90); White Blood Count 14.8 Thou/mm3 (3.8-10.6)
[2025-04-11 07:04] LABS: Alanine Aminotransferase 22 U/L (10-49); Albumin, Serum 4.6 gm/dL (3.5-5.0); Albumin/Globulin Ratio 1.7 (1.2-2.2); Alkaline Phosphatase 81 U/L (46-116); Anion Gap 15 (7-16); Aspartate Amino Transferase < 10 U/L (0-34); BUN/Creatinine Ratio 10 Ratio (12-20); Bilirubin,Total 0.4 mg/dL (0.3-1.2); Blood Urea Nitrogen 9 mg/dL (9-23); Calcium 10.3 mg/dL (8.3-10.6); Calcium (Corrected) 10.3 mg/dL (8.5-10.1); Carbon Dioxide 23.0 mMol/L (20.0-31.0); Chloride 105 mMol/L (98-107); Creatinine (Component) 0.9 mg/dL (0.6-1.3); Estimated Creatinine Clearance 155.7 mL/min (>60); Globulin 2.7 gm/dL (2.3-3.5); Glucose 134 mg/dL (74-106); Magnesium 1.8 mg/dL (1.6-2.6); Osmolality,Calculated 285 (275-295); Phosphorous 3.6 mg/dL (2.4-5.1); Potassium 4.0 mMol/L (3.4-5.1); Sodium 143 mMol/L (136-145); Total Protein 7.3 gm/dL (5.7-8.2); eGFR > 60 See Note
--- NOTE | 2025-04-11 07:52 | ESPR_ITS ---
<Statement entered by Shahrzad Bradshaw MD - 04/11/25 15:25> Note reviewed, I agree with most of its contents and agree with the patient's care as documented by Dr. Figueroa. Patient examined at bedside. No events overnight. He is status post incision and drainage of perirectal abscess today 1. No major complications. Surgery performed by Dr. Whitehead who has started patient on p.o. [place] and IV clindamycin. Continue current regimen leukocytosis slightly worsened today to 14.8. Most likely reactive however will continue to monitor. Pain has significantly improved since yesterday. Final cultures of the abscess are pending The patient's management plan was discussed with my attending physician Dr. Grider. Shahrzad Bradshaw, PGY-2 <Statement entered by Kanchan Stallworth MD - 04/11/25 13:49> Patient seen and examined at bedside. No acute overnight events reported. Patient had surgery with Dr. Whitehead and placed patient on IV clindamycin. Patient with leukocytosis today is slightly higher than yesterday at 14.8 most likely from reactive processes and inflammation. Patient continues to have some perianal pain however much improved from yesterday. Patient will continue to be on IV morphine for severe pain and p.o. [place] for moderate pain. Will plan for final cultures of abscess that was removed. Anticipate discharge within 48 hours. I discussed with and supervised the education intern physician who took care of this patient. I personally saw and examined the patient and discussed the assessment and plan with the entire medicine team, including my attending Dr. Grider, I agree with most of the assessment and plan as documented below Kanchan Stallworth M.D. PGY-3 Disclaimer: Despite multiple revisions, due to the dictation software being used, the document bellow may not be free of grammatical errors including phonetic/typographic errors. However, this does not deter from our commitment to providing health care in the patient's best interest in mind. Documentation for date of: 04/11/25 Subjective Subjective Interval history: Mr. Alonzo is a 34-year-old gentleman who is otherwise healthy with no significant past medical history. 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 He presents to the ED with perianal pain mild leukocytosis of 13. Found to have large perianal abscess on CTAP, admitted for surgical i and d with Dr. Whitehead 04/10/2025: pt admitted. Taken for surgery with Dr. Whitehead 04/11/2025: pt seen and examined at bedside. pt states that he is feeling much more comfortable than prior, reports some upper abdominal tenderness (likely 2/2 positioning during surgery) WBC slighly increased to 14, likely reactive, continues on abx, pending abscess cultures. Exam Vital Signs Temp Pulse Resp BP Pulse Ox O2 Del Method O2 Flow Rate 97.1 F 97 18 135/97 H 97 Room Air 6 04/11/25 04:00 04/11/25 04:00 04/11/25 04:00 04/11/25 04:00 04/11/25 04:00 04/11/25 04:00 04/10/25 16:21 Narrative Exam GENERAL: no acute distress, more comfortable, AAO x3, laying in bed HEENT: Head AT/ NC. Mucous membranes moist. PERRL. NECK: Supple, no lymphadenopathy, no carotid bruits. CARDIOVASCULAR: sinus tachycardia. Normal S1/S2, No m/r/g. No pitting edema of bilateral LEs. RESPIRATORY: CTAB. No wheezing, rhonchi, crackles. GASTROINTESTINAL: Abdomen soft, non tender no palpable masses. Bowel sounds present : exam of perianal abscess was deferred, per pt request MUSCULOSKELETAL:? No cyanosis or edema, no visible joint swelling. NEUROLOGICAL: CN II-XII grossly intact. No focal deficits. Sensation intact, symmetric. PSYCHIATRIC: Awake and alert, not agitated, normal mood and affect. SKIN: No obvious rashes, no jaundice, normal turgor. Objective Labs 04/12/25 04:44 04/12/25 04:44 Labs: Laboratory Results - last 24 hr 04/10/25 04/10/25 04/11/25 12:00 14:12 05:42 WBC 13.0 H 14.8 H RBC 4.63 4.55 Hgb 13.7 13.3 L Hct 40.9 L 40.8 L MCV 88 90 MCH 29.6 29.2 MCHC 33.5 32.6 RDW Std Deviation 40.7 41.7 Plt Count 291 350 D Neut % (Auto) 80 89 H Lymph % (Auto) 9 L 5 L [place] % (Auto) 7 6 Eos % (Auto) 4 0 Baso % (Auto) 1 0 Neut # (Auto) 10.3 H 13.1 H Lymph # (Auto) 1.2 0.7 L [place] # (Auto) 0.9 H 0.9 H Eos # (Auto) 0.5 0.0 Baso # (Auto) 0.1 0.0 Immature Gran # (Auto) 0.03 H 0.07 H Absolute Nucleated RBC 0.00 0.00 Immature Gran % 0 1 H Nucleated RBC % 0 0 Sodium 142 143 Potassium 4.2 4.0 Chloride 107 105 Carbon Dioxide 24.7 23.0 Anion Gap 10 15 BUN 9 9 Creatinine 1.0 0.9 Estim Creat Clear Calc 140.2 155.7 eGFR > 60 > 60 BUN/Creatinine Ratio 9 L 10 L Glucose 139 H 134 H Calculated Osmolality 283 285 Lactic Acid 1.4 Calcium 10.4 10.3 Corrected Calcium 10.4 H 10.3 H Phosphorus 3.6 Magnesium 1.8 Total Bilirubin 0.9 0.4 D AST 15 < 10 ALT 26 22 Alkaline Phosphatase 79 81 Total Protein 7.2 7.3 Albumin 4.5 4.6 Globulin 2.7 2.7 Albumin/Globulin Ratio 1.7 1.7 Lipase 31 Procalcitonin 0.14 Ur Collection Type Clean Catch Urine Color Yellow Urine Clarity Clear Urine pH 6.0 Ur Specific [place] 1.020 Urine Protein 1+ A Urine Glucose (UA) Negative Urine Ketones Negative Urine Blood Negative Urine Nitrite Negative Urine Bilirubin Negative Urine Urobilinogen (Auto) 2.0 Ur Leukocyte Esterase Negative Urine RBC 7 H Urine WBC 3 Ur Squamous Epith Cells < 1 Urine Bacteria None Quality Measures Quality Measures VTE prophylaxis Assessment & Plan Assessment Current Active Medications: Generic Name Dose Route Start Last Admin Trade Name Freq PRN Reason Stop Dose Admin Acetaminophen 650 mg 04/10/25 16:58 Acetaminophen 325 Mg Tablet PO 05/10/25 16:57 Q6HR PRN FEVER >101 Hydrocodone Bitart/Acetaminophen 1 tab 04/10/25 16:58 Hydrocodone/Apap 5/325 Tablet PO 04/15/25 16:57 Q6HR PRN PAIN 4-6 Ascorbic Acid 500 mg 04/10/25 21:00 04/10/25 21:03 Ascorbic Acid 250 Mg Tablet PO 05/10/25 20:59 500 mg BID LOYDA Administration Docusate Sodium 100 mg 09/04/25 21:00 04/10/25 21:03 Docusate Sod 100 Mg Capsule PO 05/10/25 20:59 100 mg BID LOYDA Administration Protocol Clindamycin Phosphate 900 mg/ 50 mls @ 50 mls/hr 04/10/25 22:00 04/11/25 05:06 IV Miscellaneous Supplies IV 04/17/25 21:59 50 mls/hr Q8HR LOYDA Administration Magnesium Sulfate 4 gm in 50 mls @ 12.5 mls/hr 04/11/25 07:41 Magnesium Sulfate Ivpb IV 04/11/25 11:40 X1 ONE Morphine Sulfate 1 mg 04/10/25 14:52 04/11/25 05:14 Morphine Sulf Inj 4 Mg/Ml Vial IVP 04/15/25 14:51 1 mg Q3HR PRN Administration PAIN SCALE 7-10 (Severe Ondansetron HCl 4 mg 04/10/25 16:58 Ondansetron Inj 2 Mg/Ml Inj 2 Ml IVP 05/10/25 16:57 Q6HR PRN NAUSEA OR VOMITING Protocol Pantoprazole Sodium 40 mg 04/10/25 16:58 04/10/25 17:21 Pantoprazole 40 Mg Tablet PO 05/10/25 16:57 40 mg QDAY LOYDA Administration Zinc Sulfate 220 mg 04/11/25 09:00 Zinc Sulfate 220 Mg Capsule PO 05/11/25 08:59 QDAY LOYDA Plan Mr. Alonzo is a 34-year-old gentleman who is otherwise healthy with no significant past medical history. 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 He presents to the ED with perianal pain mild leukocytosis of 13. Found to have large perianal abscess on CTAP, admitted for surgical i and d with Dr. 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 Whitehead given Ceftriaxone, metronidozole, and Cefepime prior to surgery - CTM CBC - Clindamyacin 900mg q8hr (04/10- - abscess culture GNR, speciation pending - blood cx NGTD @24 hrs - IV maintenance fluids - zinc and vit c qd - docusate 100 bid Electrolyte abnormalities Mild Hypercalcemia - IV fluids - replete as indicated Dispo: pending abscess cultures, continues on abx Diet: regular diet Bowel Reg: docusate BID VTE ppx: SCD GI ppx: not indicated. Code status: FULL Plan discussed with Dr. Bradshaw, Dr Stallworth, and Dr. Marni Figueroa MD PGY1 Attending Provider Attestation/Addendum I have examined the patient, reviewed labs and imaging findings, discussed the case with the resident(s), and reviewed entered orders. I agree with the plan of care as outlined in this note, with these additional summaries/recommendations: After examination of the patient and review of the clinical data, I feel that this patient needs admission to the hospital for further treatment and evaluation. Patient is a 34-year-old male with a medical history of GERD and hemorrhoids who presents to [facility] emergency department on 04/10/2025 for buttock and perirectal pain. Patient seen at bedside. No acute overnight events. Patient diagnosed with cellulitis and abscess of perianal region. He is status post incision and debridement with general surgery. Intraoperative cultures taken and pending speciation. Blood cultures preliminarily showing no growth. Continue pain management. Continue IV antibiotics. Consult wound care. Patient denies having bowel movement yet and we will continue to monitor and add Colace to regimen. Mild hypomagnesia present and replacement given. Continue vitamin C and zinc to promote wound healing. Patient updated on the plan and in agreement. All questions answered satisfaction. Please see residents note for additional details and management. Dr. Marni MD
[2025-04-11 08:00] VITALS: BP 142/83; PULSE 105; RESP 18; TEMP 36.6; O2SAT 96
[2025-04-11] MEDS: ASCORBIC ACID 250 MG TABLET 500 MG PO ×2 (08:07→21:13)
[2025-04-11] MEDS: DOCUSATE SOD 100 MG CAPSULE PO ×2 (08:07→21:14)
[2025-04-11] MEDS: ZINC SULFATE 220 MG CAPSULE PO (08:07)
[2025-04-11] MEDS: Magnesium Sulfate 4 GM Ivpb 4 GM/50 ML BAG IV (08:07)
[2025-04-11] MEDS: PANTOPRAZOLE 40 MG TABLET PO (08:07)
[2025-04-11] MEDS: HYDROcodone/APAP 5/325 TABLET 1 TAB PO ×2 (09:25→17:59)
--- NOTE | 2025-04-11 10:01 | PC.SS ---
Rounding: POD #1 Dr. Whitehead following, poss DC home over weekend
--- NOTE | 2025-04-11 10:47 | PC.SS ---
Yosef Alonzo is a 34 year-old male admitted to [place] for Radha Anal Abscess. SS conducted bedside contact with the patient to complete initial assessment and to discuss discharge planning. Role and reason explained. Patient confirmed demographic information. Patient identifies his Leatha Grimes [phone] as his surrogate decision maker. Pt states he is able to complete all ADL?s independent. Pt does not possesses any DME. Pts PCP is Karson Gonzalez. Pharmacy of choice is [email or web address]. Discharge options discussed and the pt wishes to return home.? Pt will provide transport. No further intervention required at this time, pediatric social worker would be available to address any further concerns. DC Plan: Home Contact: Leatha Address: Confirmed on face sheet PCP: Lisa
[2025-04-11 12:00] VITALS: BP 123/67; PULSE 95; RESP 20; TEMP 36.6; O2SAT 97
--- NOTE | 2025-04-11 12:49 | PD.SURPROG ---
Documentation for date of: 04/11/25 Subjective Subjective Narrative: Patient is seen and examined. His pain is improved. Exam Vital Signs Temp Pulse Resp BP Pulse Ox O2 Del Method O2 Flow Rate 97.8 F 105 H 18 142/83 H 96 Room Air 6 04/11/25 08:00 04/11/25 08:00 04/11/25 08:00 04/11/25 08:00 04/11/25 08:00 04/11/25 08:00 04/10/25 16:21 Constitutional Constitutional: no acute distress Routine Rectal Exam Comments: Still has significant cellulitis with minimal purulent drainage. No bleeding Assessment & Plan Assessment Additional comments: Postop day #1 status post I&D of perianal abscess Plan Continue IV antibiotics. Wound care as directed. PROCEDURES: Procedures Incision and drainage of perianal abscess
[2025-04-11] MEDS: CEFOXITIN 2 GM in SODIUM CHLORIDE 0.9% (Popper) 50 ML IV ×2 (13:13→17:22)
[2025-04-11 16:00] VITALS: BP 118/73; PULSE 94; RESP 18; TEMP 36.2; O2SAT 95
[2025-04-11 20:00] VITALS: BP 132/83; PULSE 89; RESP 17; TEMP 36.2; O2SAT 98
[2025-04-12] VITALS: BP 114/73; PULSE 80; RESP 19; TEMP 36.1; O2SAT 98
[2025-04-12] MEDS: MORPHINE SULF INJ 4 MG/ML VIAL 1 MG IVP ×3 (00:08→11:00)
[2025-04-12] MEDS: CEFOXITIN 2 GM in SODIUM CHLORIDE 0.9% (Popper) 50 ML IV ×3 (00:11→12:03)
[2025-04-12] MEDS: HYDROcodone/APAP 5/325 TABLET 1 TAB PO ×3 (00:41→14:29)
[2025-04-12 04:00] VITALS: BP 117/61; PULSE 73; RESP 16; TEMP 36.4; O2SAT 97
[2025-04-12] MEDS: CLINDAMYCIN 900MG IVPB 900 MG in PRE-MIXED 1 BAG 50 MG IV ×2 (05:27→13:33)
[2025-04-12 05:43] LABS: Basophils # (Auto) 0.1 Thou/mm3 (0.0-0.2); Basophils % (Auto) 1 % (0-2.5); Eosinophils # (Auto) 0.1 Thou/mm3 (0.0-0.5); Eosinophils % (Auto) 1 % (0-10); Hematocrit 36.8 % (41.0-53.0); Hemoglobin 11.9 g/dL (13.5-16.0); Immature Granulocytes Auto 0.04 Thou/mm3 (0.00-0.00); Lymphocytes # (Auto) 2.1 Thou/mm3 (1.0-4.8); Lymphocytes % (Auto) 23 % (10-50); Mean Corpuscular HGB Conc 32.3 g/dl (31.0-37.0); Mean Corpuscular Hemoglobin 29.4 pg (25.0-35.0); Mean Corpuscular Volume 91 fL (80-100); Monocytes # (Auto) 0.6 Thou/mm3 (0.0-0.8); Monocytes % (Auto) 7 % (0-12); Neutrophils # (Auto) 6.1 Thou/mm3 (1.8-7.7); Neutrophils % (Auto) 68 % (37-80); Nucleated Red Blood Cell # 0.00 Thou/mm3 (0.00-0.00); Nucleated Red Blood Cell % 0 /100 WBC (0); Platelet Count 323 Thou/mm3 (140-440); RDW Standard Deviation 42.7 fL (35.1-43.9); Red Blood Count 4.05 Miln/mm3 (4.50-5.90); White Blood Count 8.9 Thou/mm3 (3.8-10.6)
[2025-04-12 06:17] LABS: Alanine Aminotransferase 19 U/L (10-49); Albumin, Serum 4.0 gm/dL (3.5-5.0); Albumin/Globulin Ratio 1.5 (1.2-2.2); Alkaline Phosphatase 66 U/L (46-116); Anion Gap 13 (7-16); Aspartate Amino Transferase 12 U/L (0-34); BUN/Creatinine Ratio 11 Ratio (12-20); Bilirubin,Total 0.3 mg/dL (0.3-1.2); Blood Urea Nitrogen 11 mg/dL (9-23); Calcium 9.9 mg/dL (8.3-10.6); Calcium (Corrected) 9.9 mg/dL (8.5-10.1); Carbon Dioxide 24.2 mMol/L (20.0-31.0); Chloride 107 mMol/L (98-107); Creatinine (Component) 1.0 mg/dL (0.6-1.3); Estimated Creatinine Clearance 140.1 mL/min (>60); Globulin 2.6 gm/dL (2.3-3.5); Glucose 87 mg/dL (74-106); Magnesium 2.2 mg/dL (1.6-2.6); Osmolality,Calculated 285 (275-295); Phosphorous 4.8 mg/dL (2.4-5.1); Potassium 4.0 mMol/L (3.4-5.1); Sodium 144 mMol/L (136-145); Total Protein 6.6 gm/dL (5.7-8.2); eGFR > 60 See Note
[2025-04-12 08:00] VITALS: BP 128/74; PULSE 84; RESP 17; TEMP 36.7; O2SAT 97
[2025-04-12] MEDS: ZINC SULFATE 220 MG CAPSULE PO (09:26)
[2025-04-12] MEDS: ASCORBIC ACID 250 MG TABLET 500 MG PO (09:26)
[2025-04-12] MEDS: DOCUSATE SOD 100 MG CAPSULE PO (09:26)
[2025-04-12] MEDS: PANTOPRAZOLE 40 MG TABLET PO (09:26)
[2025-04-12 12:00] VITALS: BP 139/81; PULSE 78; RESP 18; TEMP 36.3; O2SAT 96
--- NOTE | 2025-04-12 13:27 | PC.NURSE ---
Dr. Whitehead in to see pt. Cleared for discharge from his standpoint.
--- NOTE | 2025-04-12 13:38 | PD.SURPROG ---
Documentation for date of: 04/12/25 Subjective Subjective Narrative: Patient is seen and examined. He is feeling much better. Exam Vital Signs Temp Pulse Resp BP Pulse Ox O2 Del Method O2 Flow Rate 97.3 F 78 18 139/81 H 96 Room Air 6 04/12/25 12:00 04/12/25 12:00 04/12/25 12:00 04/12/25 12:00 04/12/25 12:00 04/12/25 12:00 04/12/25 00:00 Constitutional Constitutional: no acute distress Routine Rectal Exam Comments: Significant improvement of cellulitis. No bleeding or drainage at this time Assessment & Plan Assessment Additional comments: Postop day #2 status post incision and drainage perineal abscess Plan May discharge home PROCEDURES: Procedures Incision and drainage of perianal abscess
--- NOTE | 2025-04-12 14:32 | ESDS_ITS ---
<Statement entered by Kanchan Stallworth MD - 04/13/25 08:00> I discussed with and supervised the international manager physician who took care of this patient. I personally saw and examined the patient and discussed the assessment and plan with the entire medicine team, including my attending Dr. Grider, I agree with most of the assessment and plan as documented below Kanchan Stallworth M.D. PGY-3 Disclaimer: Despite multiple revisions, due to the dictation software being used, the document bellow may not be free of grammatical errors including phonetic/typographic errors. However, this does not deter from our commitment to providing health care in the patient's best interest in mind. Planned Discharge Date 04/12/25 DS: Providers Provider Date of admission: 04/10/25 15:56 Primary care physician: Karson Gonzalez PA-C Admitting Provider: Patrick Grider MD Attending Provider on Admission: Patrick Grider MD Consults: 04/10/25 14:03 Consult to General Surgery Stat Comment: Consulting Provider: Jackelyn Whitehead Attending Provider on DC: Patrick Grider MD Discharging Provider: Patrick Grider MD DS: Diagnosis Problem List Completed Was Problem List Reviewed/Reconciled?: Yes Hospital Course Hospital Course Hospital course: Pertinent Hospital Course: The patient is a 34-year-old man with no significant past medical history who presented to the emergency department with one week of progressively worsening buttock pain (7/10 in severity), associated with subjective fevers and night sweats. He denied blood in stool or diarrhea. He has a history of hemorrhoids on colonoscopy in 2020, with planned banding that was not completed. On arrival, he was tachycardic to [address] abdomen/pelvis revealed a large right perianal abscess. He was started on empiric antibiotics with ceftriaxone 1 g and metronidazole 500 mg. General surgery (Dr. Whitehead) was consulted, and the patient underwent incision and drainage of a large right perianal abscess with central necrosis. He tolerated the procedure well. Post-operatively, he was maintained on IV clindamycin 900 mg every 8 hours. Blood cultures showed no growth to date. He was also started on vitamin C, zinc supplementation, and scheduled docusate for bowel regimen. He had one bowel movement post-operatively without complications. Surgery cleared him for discharge with a plan for 10 additional days of oral Bactrim and follow-up in clinic. He was advised he may return to work in 2 weeks with light activity restrictions. Discharge Condition: * Afebrile, hemodynamically stable * Pain controlled * Tolerating oral intake Discharge Instructions Complete Bactrim antibiotic course for 10 more days for treatment of abscess. take docusate 100 mg twice a day take vitamin c and zinc once a day to promote wound healing. Take Parkman 5-325mg as needed for pain. Do not exceed more than 4 tablets over 24hr period. May resume previous medications. Follow up with Dr. Whitehead on Saturday 04/14 for wound care. May shower. Pack the wound with half-inch packing strip and cover with dry dressings daily. May take [id number] laxatives if no bowel movement in 2 days. Avoid lifting, straining, pulling or pushing for 2 weeks. Follow-up with Dr Whitehead in 2 weeks, please call [phone] for an appointment. Plan discussed with Dr. Bradshaw, Dr Stallworth, and Dr. Marni Figueroa MD PGY1 Time Spent with Patient Time attestation: Total time spent providing and/or coordinating discharge services: Time spent: Greater than 30 minutes Exam Vital Signs Temp Pulse Resp BP Pulse Ox O2 Del Method O2 Flow Rate 97.3 F 78 18 139/81 H 96 Room Air 6 04/12/25 12:04/12/25 12:04/12/25 12:04/12/25 12:04/12/25 12:04/12/25 12:04/12/25 00:00 Narrative Exam GENERAL: no acute distress, more comfortable, AAO x3, laying in bed HEENT: Head AT/ NC. Mucous membranes moist. PERRL. NECK: Supple, no lymphadenopathy, no carotid bruits. CARDIOVASCULAR: sinus tachycardia. Normal S1/S2, No m/r/g. No pitting edema of bilateral LEs. RESPIRATORY: CTAB. No wheezing, rhonchi, crackles. GASTROINTESTINAL: Abdomen soft, non tender no palpable masses. Bowel sounds present : exam of perianal abscess was deferred, per pt request (wounds dressed by surgeon best) MUSCULOSKELETAL:? No cyanosis or edema, no visible joint swelling. NEUROLOGICAL: CN II-XII grossly intact. No focal deficits. Sensation intact, symmetric. PSYCHIATRIC: Awake and alert, not agitated, normal mood and affect. SKIN: No obvious rashes, no jaundice, normal turgor. Discharge Plan Plan Patient Disposition: HOME (Self Care) Patient condition on transfer: Stable Prescriptions/Referrals Prescriptions/Med Rec: New ascorbic acid (vitamin C) [Vitamin C] 250 mg Tablet 500 mg PO BID Qty: 60 0RF hydrocodone-acetaminophen 5-325 mg Tablet 1 tab PO Q6HR MDD 4 PRN (Reason: pain (scale score 7-10)) Qty: 10 0RF docusate sodium 100 mg Capsule 100 mg PO BID Qty: 20 0RF zinc sulfate 50 mg zinc (220 mg) Capsule 220 mg PO QDAY Qty: 30 0RF sulfamethoxazole-trimethoprim [Bactrim DS] 800-160 mg tablet 1 tab PO BID Qty: 20 0RF Continued omeprazole magnesium [Prilosec OTC] 20 mg Tablet,Delayed Release (Dr/Ec) 20 mg PO QDAY PRN (Reason: heartburn) Referrals: Jackelyn Whitehead MD [Physician, General Surgery] Karson Gonzalez PA-C [Primary Care Provider] Patient/Caregiver Discharge Instructions Discharge Activity: activity as tolerated Other Discharge Activity Instructions:: Complete Bactrim antibiotic course for 10 more days for treatment of abscess. Take Parkman 5-325mg as needed for pain. Do not exceed more than 4 tablets over 24hr period. May resume previous medications. Follow up with Dr. Whitehead on Saturday 04/14 for wound care. Education Materials: ED Abscess Antibiotic ..., ED ABSCESS [employer] Print Language: Estonian Activity Restrictions/Additional Instructions: May shower. Pack the wound with half-inch packing strip and cover with dry dressings daily. May take [id number] laxatives if no bowel movement in 2 days. Avoid lifting, straining, pulling or pushing for 2 weeks. Follow-up with Dr Whitehead in 2 weeks, please call [phone] for an appointment. Stand Alone Forms: Margarita Award Info., Patient Portal Info Letter Discharge Order Discharge Orders: Discharge (Routine); Ordered 04/12/25 Ordered By: Shahrzad Bradshaw Quality Discharge Quality Measures VTE prophylaxis Attestestation MD Attestation I have examined the patient, reviewed labs and imaging findings, discussed the case with the resident(s), and reviewed entered orders. I agree with the plan of care as outlined in this note. Time Spent: [address] Marni MD
--- NOTE | 2025-04-12 15:18 | PC.SS ---
Rounding: Pending Dr. Ventura andre, poss DC home today or tomorrow
== END 2025-04-12 15:27 | disposition home or self-care (01) | DRG 348 ==
LOC: SERX 14:31 → SERHOLD 04-11 05:30 → S3SX 04-11 05:30
PROVIDERS: Nurse Practitioner Primary Care; Surgery; Admitting Provider Student in an Organized Health Care Education/Training Program; Emergency Provider Family Medicine; PCP Physician Assistant; Visit Provider Student in an Organized Health Care Education/Training Program
PROC: 0D9Q0ZZ Drainage of Anus, Open Approach (ICD-10-PCS; principal; 2025-04-10 15:00)
DX: K61.2 Anorectal abscess (principal); I96 Gangrene, not elsewhere classified; F17.200 Nicotine dependence, unspecified, uncomplicated; E83.52 Hypercalcemia; E83.42 Hypomagnesemia
CPT/HCPCS: 36415; 74177; 80053; 81001; 83605; 83690; 83735; 84100; 84145; 85025; 87040; 87070; 87075; 87076; 87077; 87086; 87186; 87205; 96361; 96365; 96375; 96376; 99284; A4217; A4649; J0131; J0694; J0696; J1100; J1885; J2250; J2270; J2405; J2704; J3010; J3475; J3490; J7036; J7050; J7120; Q9967; A9270; J0736; J1836